=== PATIENT | male | born 1965 | race Caucasian/White ===

== ENCOUNTER → 2017-01-03 | Outpatient (CLI) | payer MEDICARE, OTHER, MEDICAID ==
[~2017-01-03] MED LIST: COREG DPS6.25 MG PO; GLUCOPHAGE1000 MG PO; HUMALOG100 UNIT/1 SQ; LANTUS100 UNITS/ SQ; LASIX DPS80 MG PO; PROAIR HFA8.5 GM IH
== END | disposition home or self-care (01) ==
LOC: THER.SSS 11:14
DX: D64.9 Anemia, unspecified (principal)

== ENCOUNTER → 2017-03-08 | Outpatient (CLI) | payer MEDICARE, OTHER, MEDICAID | END | disposition home or self-care (01) | LOC: THER.SSS 07:56 | DX: D64.9 Anemia, unspecified (principal); R06.02 Shortness of breath ==